=== PATIENT | female | born 1980 | race Caucasian/White ===

== ENCOUNTER 2016-07-15 08:10 | Inpatient (IN) | payer BC, OTHER ==
[~2016-07-15] VITALS: Ht 170.2 cm; Wt 71.7 kg
[2016-07-15 21:00] VITALS: BP 126/74
--- NOTE | 2016-07-15 21:00 | NUR ---
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 Patient was escorted on to unit to her room by intake Department, where body check was rendered. Skin check was rendered by primary nurse with skin noted intact, and at that time patient was able to provide Admission Urine Drug Screen. Patient is alert, oriented, ambulatory with no assistance needed. Breathing even and non labored with no signs of pain or discomfort noted. Vital signs rendered and noted as 126/74, 81, 18, 98.2, 5/10, 97.9. Patient is verbalizing pain due to head ache, neck, and lower back pain. Patient states "its from sitting in the plane and car from the traveling." Height noted at 5'7 and weight noted at 158lbs. Patient verbalized allergies to PCN, wishes to be full code, following a Regular diet at home. Patient is noted to be very calm, soft spoken, visibly nervous by shifting positions, but Cooperative. Patient denies any suicidal or homicidal thoughts. BUE and BLE noted WNL. Lung sounds clear with no cough. Bowel sounds active in all quadrants with LBM verbalized 07/14/16. Patient verbalizes past medical history of Hysterectomy 2011 due to excessive bleeding during menstruation, Mitral Valve Prolapse in 1995, Vitamin D Deficiency, Anxiety, Depression, and Bipolar. No history of seizures. Patients chief complaint verbalized as "I need help to get a grasp on the Alcohol and Bipolar" She explains his use as: 1. ETOH-White Wine- for the past 3 years, drinking 2-3 Bottles per day, with the last drink 07/15/16. Patient able to verbalize " 1 glass of Chardonnay, 1 bottle of Moscato 750mls at 1% alcohol, 1 glass of Zinfandel, and one the plane I had 3 vodka and orange juice" 2. Xanax- for the past 3 years ago, Prescribed 0.25mg Q4H PRN. Patient able to verbalize "I would normally take 2 tabs per day. I do not abuse them" Last dose 07/15/16-2 tabs of 0.25mg Patient able to verbalize of an incident that occurred 06/18/16 where patient was noted to have been intoxicated and had taken approx 13 tabs of her Xanax and was taken to the Emergency Room via Ambulance. She was treated with a Saline bag, monitored, and then sent home. Patient again denies suicidal attempts or ideations. She is able to report her signs and symptoms of withdrawal as "sweats, tremulous, chills, restless, anxious, and irritable." Patient currently lives at home with her , whom assisted her with treatment admission, and he 3 young boys. 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 This is the patients first time in treatment but is looking forward to [facility]. Home Medications Reconciled. Admission CIWA noted at 7. All Information relayed to MD with orders for labs to be rendered and PRN Medications available for increased signs and symptoms of Withdrawal. All needs attended to promptly. Will continue plan of care as ordered.
[2016-07-15] MEDS ORDERED: LORAZEPAM 1 MG TABLET PO PRN (21:15)
[2016-07-15] MEDS ORDERED: MAG HYDROX/AL HYDROX/SIMETH 30 ML LIQUID UDC PO PRN (21:15)
[2016-07-15] MEDS ORDERED: THIAMINE HCL 200 MG/2 ML VIAL IM ONE (21:15)
[2016-07-15] MEDS ORDERED: MAGNESIUM HYDROXIDE 30 ML LIQUID UDC PO PRN (21:15)
[2016-07-15] MEDS ORDERED: CLONIDINE HCL 0.1 MG TABLET PO PRN (21:15)
[2016-07-15] MEDS ORDERED: ONDANSETRON HCL 4 MG TABLET PO PRN (21:15)
[2016-07-15] MEDS ORDERED: LORAZEPAM 2 MG/1 ML VIAL IM PRN (21:15)
[2016-07-15] MEDS ORDERED: diphenhydrAMINE 50 MG CAPSULE PO PRN (21:15)
[2016-07-15 21:43] LABS: HEMATOCRIT 42.5 % (37.0-47.0); HEMOGLOBIN 14.4 g/dL (12.0-16.0); MEAN CORPUSCULAR HEMOGLOBIN 31.8 uug (27.0-31.0); MEAN CORPUSCULAR HGB CONC 34 g/dL (32.0-37.0); MEAN CORPUSCULAR VOLUME 93.7 fL (81.0-99.0); PLATELET COUNT (AUTO) 221 K/uL (150-450); RED BLOOD CELL COUNT(AUTO) 4.53 MIL/uL (4.20-5.40); RED CELL DISTRIBUTION WIDTH 13.3 % (11.5-14.5); WHITE BLOOD COUNT (AUTO) 4.3 K/uL (4.0-11.2)
[2016-07-15 21:54] LABS: ALBUMIN 3.7 g/dL (3.4-5.0); BILIRUBIN,TOTAL 0.3 mg/dL (0.2-1.0); CALCIUM 8.4 mg/dL (8.5-10.1); CREATININE 0.7 mg/dL (0.6-1.3); MAGNESIUM 1.9 mg/dL (1.8-2.4); POTASSIUM 3.8 mmol/L (3.5-5.1)
[2016-07-15 22:04] LABS: THYROID STIMULATING HORMONE 1.697 mIU/mL (0.358-3.740)
[2016-07-15 22:05] LABS: BAND % (MANUAL) 2 % (0-10); EOSINOPHILS % (MANUAL) 4 % (0-8); LYMPHOCYTES % (MANUAL) 45 % (20-40); MONOCYTES % (MANUAL) 7 % (2-10); NEUTROPHILS % (MANUAL) 42 % (42-75); PLATELET ESTIMATE ADEQUATE
[2016-07-15 22:06] LABS: HIV-1 p24 ANTIGEN NON REACTIVE (NONREACTIVE); HIV-1/2 ANTIBODY NON REACTIVE (NONREACTIVE)
[2016-07-15] MEDS: LORAZEPAM 1 MG TABLET PO PRN (22:18)
[2016-07-15] MEDS: IBUPROFEN 400 MG TABLET PO PRN (22:18)
--- NOTE | 2016-07-15 22:18 | NUR ---
PRN Medication Administration Patient noted with increased anxiety, nausea, and headache. CIWA noted to be 10. PRN Ativan 1mg, Motrin, and Zofran all given and patient able to tolerate well. Will continue to monitor.
[2016-07-15] MEDS ORDERED: IBUPROFEN 400 MG TABLET ONE (22:21)
[2016-07-15] MEDS ORDERED: LORAZEPAM 1 MG TABLET ONE (22:21)
[2016-07-15] MEDS ORDERED: ONDANSETRON HCL 4 MG TABLET ONE (22:22)
--- NOTE | 2016-07-15 23:30 | NUR ---
PRN Medication Reassessment Patient noted in room, returning form shower. Patient able to verbalize that nausea had subsided. Patient also verbalized that anxiety was reduced with the aid of the medication. Patient still verbalizing of slight head ache but states "the Motrin took the edge off to where its tolerable. Its probably from the traveling." Encouraged patient to drink plenty of fluids. Patient verbalized understanding. Will continue to monitor.
[2016-07-16 00:33] VITALS: BP 114/61
--- NOTE | 2016-07-16 00:42 | NUR ---
PRN Medication Administration Patient noted awake during vitals and verbalizing inability of falling asleep. PRN Benadryl given and patient able to tolerate well. Will continue to monitor for effectiveness of medication.
[2016-07-16] MEDS ORDERED: diphenhydrAMINE 25 MG CAP PO ONE (00:45)
[2016-07-16] MEDS ORDERED: diphenhydrAMINE 50 MG CAPSULE ONE (00:51)
[2016-07-16 00:54] LABS: *URINE HCG, QUAL NEGATIVE (NEGATIVE)
[2016-07-16] MEDS ORDERED: SUMA50TA PO (01:05)
[2016-07-16] MEDS ORDERED: DIVA500T2 PO (01:05)
[2016-07-16] MEDS ORDERED: FLUO20CA36 PO (01:05)
[2016-07-16] MEDS ORDERED: FLUO40CA8 PO (01:05)
[2016-07-16] MEDS ORDERED: ERGO500047 PO (01:05)
[2016-07-16 01:51] LABS: *AMPHETAMINE, URINE NEGATIVE (NEGATIVE); *BARBITURATE, URINE NEGATIVE (NEGATIVE); *CANNABINOID, URINE NEGATIVE (NEGATIVE); *COCCAINE, URINE NEGATIVE (NEGATIVE); *OPIATE, URINE NEGATIVE (NEGATIVE); *PHENCYCLIDINE SCREEN,URINE NEGATIVE (NEGATIVE)
[2016-07-16 04:32] VITALS: BP 107/67
--- NOTE | 2016-07-16 07:03 | NUR ---
End of Shift Patient is in bed sleeping. Breathing even and non labored. No signs of pain or discomfort noted. Patient is a 36 year old female, admitted on 07/15/16 for ETOH and Benzo Dependence, under the care of Dr. Claudio. Patient is set to start a 5 day Ativan taper today 07/16/16 0900. Patient verbalizes allergies to PCN, wishes to be full code, following a regular diet, skin intact, on fall and seizure precautions. Past Medical history of Anxiety, Depression, Bipolar, Hysterectomy in 2011, Mitral Valve Prolapse, Vitamin D Deficiency. PRN Ativan 1mg administered for a CIWA of 10. PRN Zofran, Motrin, and Benadryl also administered and noted to be effective. All needs attended to promptly. Will endorse to continue plan of care as ordered.
--- NOTE | 2016-07-16 07:30 | NUR ---
START OF SHIFT NOTE: Received report from assistant casino shift manager nurse. Patient is a 36 year old female, admitted on 07/15/16 for ETOH and Benzo Dependence. Pt placed on a 5 day Ativan taper to start this AM. Pt is alert and oriented X4. Color good, skin warm and dry. Respirations even and unlabored. Pt resting in bed at this time. Safety precautions observed. Call light within reach. Will continue to monitor.
[2016-07-16 08:00] VITALS: BP 122/60
[2016-07-16] MEDS ORDERED: TUBERCULIN,PURIF.PROT.DERIV. 5 TU/0.1 ML TEST ID ONE (09:00)
--- NOTE | 2016-07-16 09:00 | NUR ---
VSS CIWA 13 Pt c/o tremors, sweating and anxiety.
[2016-07-16] MEDS: LORAZEPAM 1 MG TABLET PO SCH ×4 (09:09→21:10)
[2016-07-16] MEDS: THIAMINE HCL 100 MG TABLET PO SCH (09:09)
[2016-07-16] MEDS: MULTIVITAMINS,THERAPEUTIC TABLET PO SCH (09:09)
[2016-07-16] MEDS: FOLIC ACID 1 MG TABLET PO SCH (09:10)
[2016-07-16] MEDS ORDERED: DIVALPROEX 500 MG TABLET.DR PO PRN (10:15)
[2016-07-16] MEDS ORDERED: FLUOXETINE HCL 20 MG CAPSULE PO PRN (10:15)
[2016-07-16] MEDS ORDERED: DIVALPROEX 500 MG TABLET.DR PO SCH (10:15)
[2016-07-16] MEDS: FLUOXETINE HCL 20 MG CAPSULE PO SCH (10:56)
[2016-07-16] MEDS ORDERED: TRAZODONE 50 MG TABLET PO PRN (11:15)
[2016-07-16 12:42] VITALS: BP 112/70
[2016-07-16] MEDS: ACETAMINOPHEN 325 MG TABLET PO PRN (12:54)
[2016-07-16] MEDS: BACLOFEN 20 MG TABLET PO PRN ×2 (12:54→21:09)
--- NOTE | 2016-07-16 13:00 | NUR ---
Tylenol 650 po prn, Baclofen 20mg po prn given for back pain.
--- NOTE | 2016-07-16 14:00 | NUR ---
Pt states feels improved after Baclofen and Tylenol prn's.
--- NOTE | 2016-07-16 15:30 | NUR ---
Pt c/o anxiety and agitation. CIWA 12 Ativan 1mg po prn given.
[2016-07-16] MEDS: LORAZEPAM 1 MG TABLET PO PRN (15:33)
--- NOTE | 2016-07-16 16:12 | NUR ---
Pt states feels improved after Ativan 1mg po prn. CIWA 8
--- NOTE | 2016-07-16 18:00 | NUR ---
Pt c/o back pain. Motrin 400mg po prn given
[2016-07-16] MEDS: IBUPROFEN 400 MG TABLET PO PRN (18:17)
[2016-07-16 18:42] VITALS: BP 112/70
--- NOTE | 2016-07-16 18:45 | NUR ---
END OF SHIFT NOTE: Report given to shift engineer nurse. Patient is a 36 year old female, admitted on 07/15/16 for ETOH and Benzo Dependence. Pt placed on a 5 day Ativan taper tolerating well. Pt is alert and oriented X4. Color good, skin warm and dry. Respirations even and unlabored. Vital signs have remained stable throughout shift. Pt received Tylenol 650mg po prn and Baclofen 20mg po prn @ 1300 for back pain. Ativan 1mg po prn given @ 1530 for anxiety and agitation. Motrin 400mg po prn @ 1800. Last CIWA 10 @ 1700. Pt resting in bed at this time. Safety precautions observed. Call light within reach.
--- NOTE | 2016-07-16 19:10 | NUR ---
Start of Shift Received Patient. Patient is in activities room participating in group activities. Patient is a 36 year old female, admitted on 07/15/16 for ETOH and Benzo Dependence, under the care of Dr. Claudio, and is currently receiving a 5 day Ativan taper. Patient verbalizes allergies to PCN, wishes to be full code, following a regular diet, skin intact, on fall and seizure precautions. Past Medical history of Anxiety, Depression, Bipolar, Hysterectomy in 2011, Mitral Valve Prolapse, Vitamin D Deficiency. Per endorsement, patient continues on her Home medications of Prozac and Depakote. Patient was given several PRN medications throughout the shift including PRN Ativan 1mg for a CIWA of CIWA of 12. All needs attended to promptly. Will continue plan of care as ordered.
[2016-07-16 21:05] VITALS: BP 159/78
[2016-07-16] MEDS: DIVALPROEX 500 MG TABLET.DR PO SCH (21:10)
[2016-07-16] MEDS: ONDANSETRON ODT 4 MG TAB.RAPDIS SL PRN (21:10)
--- NOTE | 2016-07-16 21:15 | NUR ---
PRN Medication Administration Patient verbalized increase back spasms to the lower back and also to the lower legs. Patient also verbalizing increase nausea with no episodes of emesis noted. PRN Baclofen and Zofran administered with routine medications. Patient able to tolerate well. Will continue to monitor for effectiveness.
--- NOTE | 2016-07-16 22:30 | NUR ---
PRN Medication Reassessment Patient noted returning to room with snacks. patient able to verbalize that medications were effective and symptoms had subsided. Patient states "I feel so much better." Will continue to monitor.
[2016-07-17 00:58] VITALS: BP 111/50
[2016-07-17 04:57] VITALS: BP 124/71
[2016-07-17] MEDS: HYDROXYZINE PAMOATE 25 MG CAPSULE PO PRN (05:27)
[2016-07-17] MEDS: IBUPROFEN 400 MG TABLET PO PRN (05:28)
--- NOTE | 2016-07-17 05:34 | NUR ---
PRN Medication Administration Patient noted awake, noted to emotional, verbalizing "I had a bad dream and when I woke up I felt like I was still in the dream." Patient verbalizing increased anxiety and increased neck pain of 5/10. PRN Vistaril and Motrin administered. Patient able to tolerate well. Patient verbalized of wanting to go outside to get fresh air. She was accompanied by BHT. Will continue to monitor.
--- NOTE | 2016-07-17 06:38 | NUR ---
PRN Medication Reassessment patient able to verbalize "I feel much better. Im going to try and sleep for a little while" PRN Vistaril and Motrin noted to be effective. Will continue to monitor.
--- NOTE | 2016-07-17 07:23 | NUR ---
End of Shift Patient is in bed sleeping. Breathing even and non labored. No signs of pain or discomfort noted. Patient is a 36 year old female, admitted on 07/15/16 for ETOH and Benzo Dependence, under the care of Dr. Claudio. Patient is set to start a 5 day Ativan taper today 07/16/16 0900. Patient verbalizes allergies to PCN, wishes to be full code, following a regular diet, skin intact, on fall and seizure precautions. Past Medical history of Anxiety, Depression, Bipolar, Hysterectomy in 2011, Mitral Valve Prolapse, Vitamin D Deficiency. PRN Vistaril, Motrin, Zofran, and Baclofen given and medications noted to be effective. All needs attended to promptly. Will endorse to continue plan of care as ordered.
--- NOTE | 2016-07-17 07:40 | NUR ---
START OF SHIFT Pt is a 36 yr old female, AA&Ox3. Pt was admitted on 07/15/16 for ETOH/Benzo dependence and is on 5 day Ativan taper as ordered. Medication ivanna well. Pt is full code, regular diet and allergies to PCN. Pt reports of PMH of anxiety, depression, bipolar d/o, hysterectomy, Mitral Valve prolapse and Vit D deficiency. Pt received Zofran, Baclofen PRN at 2110 and Vistaril and Motrin at 0530 during the overnight caregiver. Medication was effective. Last CIWA score was 4. Pt slept for 6 hrs. Pt is c/o increase anxiety/ facial redness with flat effective is observed. Skin is intact, warm and moist to touch. No tremors seen or felt. Pt denies any n/v. Encouraged increase fluid intake. Will f/u with eMAR. Safety precaution observed. Will continue to monitor.
[2016-07-17 08:00] VITALS: BP 121/73
[2016-07-17] MEDS: MULTIVITAMINS,THERAPEUTIC TABLET PO SCH (09:16)
[2016-07-17] MEDS: LORAZEPAM 1 MG TABLET PO SCH ×3 (09:16→21:25)
[2016-07-17] MEDS: FOLIC ACID 1 MG TABLET PO SCH (09:17)
[2016-07-17] MEDS: THIAMINE HCL 100 MG TABLET PO SCH (09:17)
[2016-07-17] MEDS: FLUOXETINE HCL 20 MG CAPSULE PO SCH (09:17)
[2016-07-17] MEDS: QUETIAPINE FUMARATE 25 MG TABLET PO SCH ×2 (10:26→21:25)
[2016-07-17 12:00] VITALS: BP 122/61
[2016-07-17 16:00] VITALS: BP 120/68
--- NOTE | 2016-07-17 18:55 | NUR ---
END OF SHIFT Pt is a 36 yr old female, AA&Ox3. Pt was admitted on 07/15/16 for ETOH/Benzo dependence and is on 5 day Ativan taper as ordered. Medication ivanna well. Pt is full code, regular diet and allergies to PCN. Pt reports of PMH of anxiety, depression, bipolar d/o, hysterectomy, Mitral Valve prolapsed and Vit D deficiency. Pt c/o increase anxiety and depression during the day. Pt was seen by Dr. Briggs with new order for Seroquel 50mg AMHS. No PRN's were given . Pt was observed with increase drowsiness after receiving Seroquel. Pt refused to attend group sessions and activities. Pt remains resting in bed with respirations even and unlabored. Skin is intact, warm and moist to touch. No tremors seen or felt. Pt denies any n/v. Encouraged increase fluid intake. Last CIWA score was 0. Safety precaution observed. Call light is within reach
--- NOTE | 2016-07-17 19:10 | NUR ---
Start of Shift Received Patient. Patient is in activities room participating in group activities. Patient is a 36 year old female, admitted on 07/15/16 for ETOH and Benzo Dependence, under the care of Dr. Claudio, and is currently receiving a 5 day Ativan taper. Patient verbalizes allergies to PCN, wishes to be full code, following a regular diet, skin intact, on fall and seizure precautions. Past Medical history of Anxiety, Depression, Bipolar, Hysterectomy in 2011, Mitral Valve Prolapse, Vitamin D Deficiency. Per endorsement, patient continues on her Home medications of Prozac and Depakote. Per endorsement, patient noted to be flat and withdrawal during shift. New order for Seroquel 50mg Q12H. All needs attended to promptly. Will continue plan of care as ordered.
[2016-07-17 20:25] VITALS: BP 140/96
[2016-07-17] MEDS: DIVALPROEX 500 MG TABLET.DR PO SCH (21:25)
--- NOTE | 2016-07-18 00:26 | NUR ---
Vitals and CIWA Patient Refused 0000 vitals prior to bed. Patient verbalized "I haven't been getting rest lately, so if Im sleeping please let me sleep." Patient is noted in bed sleeping. Breathing even and non labored. No signs of pain or discomfort noted. Patients respirations noted at 14. CIWA not able to be completed as per order. Will continue plan of care as ordered. Addendum: 07/18/16 at 0047 by THOM MCCARTY LVN Amended: Links added.
--- NOTE | 2016-07-18 04:37 | NUR ---
Vitals and CIWA Patient Refused 0400 vitals prior to bed. Patient verbalized "I haven't been getting rest lately, so if Im sleeping please let me sleep." Patient is noted in bed sleeping. Breathing even and non labored. No signs of pain or discomfort noted. Patients respirations noted at 14. CIWA not able to be completed as per order. Will continue plan of care as ordered. Addendum: 07/18/16 at 0437 by THOM MCCARTY LVN Amended: Links added.
--- NOTE | 2016-07-18 07:19 | NUR ---
End of Shift Patient is in bed sleeping. Breathing even and non labored. No signs of pain or discomfort noted. Patient is a 36 year old female, admitted on 07/15/16 for ETOH and Benzo Dependence, under the care of Dr. Claudio. Patient is set to start a 5 day Ativan taper today 07/16/16 0900. Patient verbalizes allergies to PCN, wishes to be full code, following a regular diet, skin intact, on fall and seizure precautions. Past Medical history of Anxiety, Depression, Bipolar, Hysterectomy in 2011, Mitral Valve Prolapse, Vitamin D Deficiency. No PRN Medications noted. All needs attended to promptly. Will endorse to continue plan of care as ordered.
--- NOTE | 2016-07-18 07:45 | NUR ---
START OF SHIFT Pt is a 36 yr old female, AA&Ox3. Pt was admitted on 07/15/16 for ETOH/Benzo dependence and is on 5 day Ativan taper as ordered. Medication ivanna well. Pt is full code, regular diet and allergies to PCN. Pt reports of PMH of anxiety, depression, bipolar d/o, hysterectomy, Mitral Valve prolapse and Vit D deficiency. No PRN's were given during the floorhand. Pt slept for 7 hrs. Last CIWA score was 9. Pt is currently in bed resting with respirations even and unlabored. Skin is intact, warm and moist to touch. No tremors seen or felt. Pt denies any n/v. Encouraged increase fluid intake. Safety precaution observed. Bed kept in low position and locked with side rails up x2. Call light is within reach. Will continue to monitor.
[2016-07-18 08:00] VITALS: BP 105/57
[2016-07-18] MEDS: MULTIVITAMINS,THERAPEUTIC TABLET PO SCH (08:38)
[2016-07-18] MEDS: LORAZEPAM 1 MG TABLET PO SCH ×4 (08:38→20:54)
[2016-07-18] MEDS: FLUOXETINE HCL 20 MG CAPSULE PO SCH (08:38)
[2016-07-18] MEDS: FOLIC ACID 1 MG TABLET PO SCH (08:38)
[2016-07-18] MEDS: THIAMINE HCL 100 MG TABLET PO SCH (08:38)
[2016-07-18] MEDS ORDERED: ERGOCALCIFEROL 50,000 UNIT CAPSULE PO SCH (09:00)
[2016-07-18] MEDS: QUETIAPINE FUMARATE 25 MG TABLET PO SCH ×3 (09:00→20:56)
--- NOTE | 2016-07-18 09:07 | NUR ---
MD COMMUNICATION Per pt, Seroquel 50mg in AM was "too strong of a dose" for her and was causing increase sedation. Reported to Dr. Briggs with new telephone order for Seroquel 25mg PO Daily and Seroquel 50mg PO QHS. New order was noted and carried out.
[2016-07-18] MEDS: IBUPROFEN 400 MG TABLET PO PRN (09:16)
[2016-07-18] MEDS: BACLOFEN 20 MG TABLET PO PRN ×3 (09:16→21:36)
--- NOTE | 2016-07-18 09:16 | NUR ---
PRN MEDICATIONS GIVEN Pt c/o back pain/spasms 10/31. facial grimacing is observed. Baclofen 20mg PRN and Motrin 400mg PRN was given as ordered. Medication ivanna well. Encouraged increase fluid intake. Will continue to monitor.
--- NOTE | 2016-07-18 10:16 | NUR ---
PRN RE-ASSESSMENT Baclofen PRN and Motrin was effective. pt continues to c/o mild pain 08/01. Encouraged increase fluid intake. Will continue to monitor.
[2016-07-18 12:00] VITALS: BP 124/88
--- NOTE | 2016-07-18 14:15 | NUR ---
MD COMMUNICATION/PRN GIVEN Pt was c/o lower back pain 12/01. facial grimacing is observed. Spoke with Dr. Claudio in regards to pain. Received new order for Toradol 30mg IM PRN. New order was initiated by MD. Pt received Toradol 30mg IM PRN and Baclofen 20mg PO PRN as ordered. Medication ivanna well. Encouraged increase fluid intake. Will continue to monitor.
[2016-07-18] MEDS: KETOROLAC TROMETHAMINE 30 MG INJ IM PRN ×2 (14:17→21:27)
--- NOTE | 2016-07-18 15:15 | NUR ---
PRN RE-ASSESSMENT Toradol PRN and Baclofen PRN was effective. Pt pain level subsided to 4/10. Will continue to monitor.
[2016-07-18 16:00] VITALS: BP 120/84
--- NOTE | 2016-07-18 19:17 | NUR ---
END OF SHIFT Pt is a 36 yr old female, AA&Ox3. Pt was admitted on 07/15/16 for ETOH/Benzo dependence and is on 5 day Ativan taper as ordered. Medication ivanna well. Pt is full code, regular diet and allergies to PCN. Pt reports of PMH of anxiety, depression, bipolar d/o, hysterectomy, Mitral Valve prolapsed and Vit D deficiency. Pt has been cooperative with medication regime and plan of care. Pt attended groups sessions. Pt received Baclofen PRN and Motrin at 0916 and Toradol PRN and Baclofen at 1415 for muscle pain. Medication was effective. Pt has been observed with anxiety during the day. Educated pt on coping mechanisms. Pt was able to verbalize understanding. Skin is intact, warm and dry to touch. No tremors seen or felt. Pt denies any n/v. Encouraged increase fluid intake. Last CIWA score was 4 at 1600. Safety precaution observed. Call light is within reach
--- NOTE | 2016-07-18 19:30 | NUR ---
START OF SHIFT--- Pt is a 36 yr old female, A/Ox3. Pt was admitted on 07/15/16 for ETOH/Benzo dependence and is on 5 day Ativan taper as ordered, tolerating well. Pt is full code, regular diet and allergies to PCN. Pt reports of PMH of anxiety, depression, bipolar d/o, hysterectomy, Mitral Valve prolapsed and Vit D deficiency. Pt has been cooperative with medication regime and plan of care. Skin is intact, warm and dry to touch. Pt denies any N/V. Encouraged to increase fluid intake. Last CIWA score was 4 at 1600. Safety precaution observed.Bed is locked in lowest position,side rails up and padded x 2, Call light is within reach,will continue to monitor.
[2016-07-18 20:00] VITALS: BP 134/70
[2016-07-18] MEDS: DIVALPROEX 500 MG TABLET.DR PO SCH (20:55)
[2016-07-18] MEDS: CLONIDINE HCL 0.1 MG TABLET PO SCH (20:55)
[2016-07-18] MEDS ORDERED: MIRALAX 17 GM POWD.PACK PO PRN (21:15)
[2016-07-18] MEDS ORDERED: BISACODYL 5 MG TABLET.DR PO ONE (21:15)
[2016-07-18] MEDS: ONDANSETRON ODT 4 MG TAB.RAPDIS SL PRN (21:36)
--- NOTE | 2016-07-18 21:40 | NUR ---
PRN MEDS-- PT C/O BACK PAIN,NAUSEA AND MUSCLE CRAMPS.MEDICATED WITH TRAMADOL IM,ZOFRAN SL AND BACLOFEN PO ORDERED.WILL MONITOR FOR EFFECTIVENESS.
--- NOTE | 2016-07-18 22:40 | NUR ---
PRN F/U-- PRN MEDS ARE EFFECTIVE.PT SEEN RESTING IN BED WITH EYES CLOSED,NO S/S OF DISTRESS NOTED.
[2016-07-19] VITALS: BP 128/78
[2016-07-19] MEDS: IBUPROFEN 400 MG TABLET PO PRN (03:10)
--- NOTE | 2016-07-19 03:11 | NUR ---
PRN MED--- PRN MOTRIN GIVEN ORDERED FOR C/O HEADACHE.WILL MONITOR FOR EFFECTIVENESS.
--- NOTE | 2016-07-19 04:00 | NUR ---
PT VERBALIZED FEEING BETTER .REFUSED V/S AND CIWA. IWA.
[2016-07-19 04:06] LABS: HEPATITIS B CORE AB, IgM Negative (Negative); HEPATITIS B SURFACE AG Negative (Negative)
--- NOTE | 2016-07-19 06:47 | NUR ---
END OF SHIFT--- Pt is a 36 yr old female, A/Ox3. Pt was admitted on 07/15/16 for ETOH/Benzo dependence and is on 5 day Ativan taper as ordered, tolerating well. Pt is full code, regular diet and allergies to PCN. Pt reports of PMH of anxiety, depression, bipolar d/o, hysterectomy, Mitral Valve prolapsed and Vit D deficiency. Pt has been cooperative with medication regime and plan of care. Skin is intact, warm and dry to touch. Encouraged to increase fluid intake. Last CIWA score was 2 at midnight.PRN Toradol IM given x 1 for back pain.PRN Baclofen,Zofran and motrin given last night.Pt slept 8 hrs;fliud intake was 796 mls, urine x 2 . Safety precaution observed.Bed is locked in lowest position,side rails up and padded x 2, Call light is within reach,will continue to monitor. Addendum: 07/19/16 at 0704 by DOMENICO SABA RN PT WAS GIVEN DULCOLAX FOR C/O CONSTIPATION LAST NIGHT.RESULT STILL PENDING.ENDORSED TO DAY SHIFT TO FOLLOW UP.
[2016-07-19 08:00] VITALS: BP 112/67
--- NOTE | 2016-07-19 08:00 | NUR ---
START OF SHift Pt 36 y/o female admitted for etoh and benzo dependence. Pt received in room with eyes closed resting, but easily arousable to name. Pt alert and oriented to name, place, and time. Perrla. Skin warm and dry to touch. Respirations even and unlabored. It was reported that pt slept for 8 hours last night. Bed on lowest position with side rails x2 up for safety. Call light within reach. No distress noted at this time.
[2016-07-19] MEDS: LORAZEPAM 1 MG TABLET PO SCH ×3 (08:48→21:14)
[2016-07-19] MEDS: THIAMINE HCL 100 MG TABLET PO SCH (08:48)
[2016-07-19] MEDS: FOLIC ACID 1 MG TABLET PO SCH (08:48)
[2016-07-19] MEDS: BACLOFEN 20 MG TABLET PO PRN ×2 (08:48→21:17)
[2016-07-19] MEDS: FLUOXETINE HCL 20 MG CAPSULE PO SCH (08:48)
[2016-07-19] MEDS: MULTIVITAMINS,THERAPEUTIC TABLET PO SCH (08:48)
[2016-07-19] MEDS: QUETIAPINE FUMARATE 25 MG TABLET PO SCH ×2 (08:48→21:16)
[2016-07-19] MEDS: KETOROLAC TROMETHAMINE 30 MG INJ IM PRN ×3 (08:50→21:17)
--- NOTE | 2016-07-19 08:50 | NUR ---
PRN Pt with c/o back pain 10/31. Toradol im prn per MD order given and tolerated well.
[2016-07-19] MEDS ORDERED: GABAPENTIN 300 MG CAPSULE PO SCH (09:00)
[2016-07-19] MEDS: CLONIDINE HCL 0.1 MG TABLET PO SCH ×2 (09:00→21:15)
--- NOTE | 2016-07-19 09:50 | NUR ---
MIKE ROSENBERG Pt observed in dining room sitting on chair. No distress noted at this time.
[2016-07-19 12:00] VITALS: BP 112/67
[2016-07-19] MEDS: ACETAMINOPHEN 325 MG TABLET PO PRN (13:54)
--- NOTE | 2016-07-19 15:20 | NUR ---
PRN Pt with c/o back pain 10/01. Toradol im prn per MD order given and tolerated well.
[2016-07-19 16:00] VITALS: BP 100/54
--- NOTE | 2016-07-19 16:20 | NUR ---
MIKE ROSENBERG Pt observed walking around the hallways. No distress noted at this time.
--- NOTE | 2016-07-19 19:20 | NUR ---
END OF SHIFT Pt 36 y/o female admitted for etoh and benzo dependence. Pt alert and oriented to name, place, and time. Perrla. Skin warm and dry to touch.Respirations even and unlabored. Pt observed mostly in activity today. Pt medication compliant and tolerated well. No ASE noted. Bed on lowest position with side rails x2 up for safety. Call light within reach. No distress noted at this time.
--- NOTE | 2016-07-19 19:30 | NUR ---
START OF SHIFT-- Pt is a 36 yr old female, A/Ox3. Pt was admitted on 07/15/16 for ETOH/Benzo dependence and is on 5 day Ativan taper as ordered, tolerating well. Pt is full code, regular diet and allergies to PCN. Pt reports of PMH of anxiety, depression, bipolar d/o, hysterectomy, Mitral Valve prolapsed and Vit D deficiency. Pt has been cooperative with medication regime and plan of care. Skin is intact, warm and dry to touch. Encouraged to increase fluid intake. Last CIWA score was 2, Safety precaution observed at all times.Bed is locked in lowest position,side rails up and padded x 2, Call light is within reach,will continue to monitor.
[2016-07-19 20:00] VITALS: BP 133/74
[2016-07-19] MEDS: GABAPENTIN 300 MG CAPSULE PO SCH (21:15)
[2016-07-19] MEDS: DIVALPROEX 500 MG TABLET.DR PO SCH (21:15)
--- NOTE | 2016-07-19 21:17 | NUR ---
PRN MEDS--- PRN TORADOL IM AND BACLOFEN PO MEDS GIVEN ORDERED FOR C/O BACK PAIN AND MUSCLE SPASMS RESPECTIVELY ORDERED.PO PAIN MED WAS OFFERED BUT PT PREFERS TO TAKE IM MEDS,SAID "THE PILLS DON'T HELP".WILL MONITOR FOR EFFECTIVENESS.
--- NOTE | 2016-07-19 22:20 | NUR ---
PRN F/U PT STATES FEELING BETTER.PRN MEDS ARE EFFECTIVE.
--- NOTE | 2016-07-20 | NUR ---
V/S AND CIWA DEFERRED-- PT REQUESTED NOT TO BE WOKEN UP FOR V/S IF SHE IS SLEEPING.OBSERVED TO BE FAST ASLEEP,NO S/S OF DISTRESS NOTED.WILL BE MONITORED.
--- NOTE | 2016-07-20 04:00 | NUR ---
V/S AND CIWA DEFERRED-- PT REFUSED V/S IF SHE IS SLEEPING.OBSERVED TO BE FAST ASLEEP,NO S/S OF DISTRESS NOTED.WILL BE MONITORED.
--- NOTE | 2016-07-20 06:43 | NUR ---
END OF SHIFT-- Pt is a 36 yr old female, A/Ox3. Pt was admitted on 07/15/16 for ETOH/Benzo dependence and is on 5 day Ativan taper as ordered, tolerating well. Pt is full code, regular diet and allergies to PCN. Pt reports of PMH of anxiety, depression, bipolar d/o, hysterectomy, Mitral Valve prolapsed and Vit D deficiency. Pt has been cooperative with medication regime and plan of care. Skin is intact, warm and dry to touch. Encouraged to increase fluid intake. Last CIWA score was 2. PRN Toradol and Baclofen given last night.Pt slept 7 hrs,fluiid intake was 1336 mls,urine x 1 . Safety precaution observed at all times.Bed is locked in lowest position,side rails up and padded x 2, Call light is within reach,will continue to monitor
[2016-07-20 08:00] VITALS: BP 104/62
--- NOTE | 2016-07-20 08:00 | NUR ---
START OF SHIFT Pt 36 y/o female admitted for etoh and benzo dependence. Pt received in room with eyes closed resting, but easily arousable to name. Pt alert and oriented to name, place, and time. Perrla. Skin warm and dry to touch. Respirations even and unlabored. It was reported that pt slept for 7 hours last night. Bed on lowest position with side rails x2 up for safety. Call light within reach. No distress noted at this time.
[2016-07-20] MEDS: GABAPENTIN 300 MG CAPSULE PO SCH ×3 (09:08→20:49)
[2016-07-20] MEDS: THIAMINE HCL 100 MG TABLET PO SCH (09:08)
[2016-07-20] MEDS: LORAZEPAM 1 MG TABLET PO SCH ×2 (09:08→20:49)
[2016-07-20] MEDS: FOLIC ACID 1 MG TABLET PO SCH (09:08)
[2016-07-20] MEDS: QUETIAPINE FUMARATE 25 MG TABLET PO SCH ×2 (09:08→20:49)
[2016-07-20] MEDS: FLUOXETINE HCL 20 MG CAPSULE PO SCH (09:08)
[2016-07-20] MEDS: MULTIVITAMINS,THERAPEUTIC TABLET PO SCH (09:08)
[2016-07-20] MEDS: CLONIDINE HCL 0.1 MG TABLET PO SCH ×2 (09:09→20:48)
[2016-07-20] MEDS: KETOROLAC TROMETHAMINE 30 MG INJ IM PRN ×2 (09:09→14:58)
--- NOTE | 2016-07-20 09:09 | NUR ---
PRN Pt with c/o pain aching of lower back 10/31. Toradol im prn per MD order given and tolerated well.
--- NOTE | 2016-07-20 10:09 | NUR ---
MIKE ROSENBERG Pt observed in dining room sitting on couch watching television.
[2016-07-20 12:00] VITALS: BP 106/68
[2016-07-20] MEDS: BACLOFEN 20 MG TABLET PO PRN (15:07)
[2016-07-20 16:00] VITALS: BP 100/57
[2016-07-20] MEDS: ACETAMINOPHEN 325 MG TABLET PO PRN (17:46)
--- NOTE | 2016-07-20 18:41 | NUR ---
END OF SHIFT Pt 36 y/o female admitted for etoh and benzo dependence. Pt alert and oriented to name, place, and time. Perrla. Skin warm and dry to touch.Respirations even and unlabored. Pt observed mostly in activity and room today. Pt medication compliant and tolerated well. No ASE noted. Bed on lowest position with side rails x2 up for safety. Call light within reach. No distress noted at this time.
--- NOTE | 2016-07-20 19:15 | NUR ---
Start of shift note Received report from day shift nurse. Pt is a 36 yo female, A+Ox4, presenting to [facility] for ETOH/Benzo dependence. Pt has Allergies to PCN, is Full Code status, and on Regular diet. Pt is on fall and Seizure precautions. Pt has HX of Anxiety, Depression, Bipolar, Hysterectomy, Mitral Valve prolapse, Vitamin D Deficiency, Pt is on 5 day Ativan taper, tolerated well. No s/s of distress noted at this time. Respirations even and unlabored. Will continue to monitor.
[2016-07-20] MEDS: DIVALPROEX 250 MG TABLET.DR PO SCH (20:48)
[2016-07-20 20:53] VITALS: BP 126/74
[2016-07-20] MEDS ORDERED: DIVALPROEX 500 MG TABLET.DR PO SCH (21:00)
--- NOTE | 2016-07-20 21:41 | NUR ---
PRN MOM Pt c/o constipation and requested for PRN Milk of Magnesia. Medication given and tolerated well. Will reassess within 1 HR. Will continue to monitor.
--- NOTE | 2016-07-20 22:30 | NUR ---
PRN MOM Reassessment Medication effective. No s/s of ASE/distress noted at this time. Respirations even and unlabored. Will continue to monitor.
--- NOTE | 2016-07-21 00:10 | NUR ---
V/S and CIWA Refused V/S and CIWA Refused. No s/s of distress noted at this time. Respirations even and unlabored. Will continue to monitor.
--- NOTE | 2016-07-21 04:13 | NUR ---
V/S and CIWA Refused V/S and CIWA Refused. No s/s of distress noted at this time. Respirations even and unlabored. Will continue to monitor.
--- NOTE | 2016-07-21 06:45 | NUR ---
End of shift note Pt is a 36 yo female, A+Ox4, presenting to [facility] for ETOH/Benzo dependence. Pt has Allergies to PCN, is Full Code status, and on Regular diet. Pt is on Fall and Seizure precautions. Pt has HX of Anxiety, Depression, Bipolar, Hysterectomy, Mitral Valve prolapse, and Vitamin D Deficiency. Pt is on 5 day Ativan taper, tolerated well. Pt was given PRN MOM @2141. Pt slept for a total of 7 HRS. Last CIWA: 3 @1999. No s/s of distress noted at this time. Respirations even and unlabored. Will endorse to day shift nurse.
--- NOTE | 2016-07-21 07:00 | NUR ---
Start of Shift Notes: Received patient in her room. Alert and oriented x 4. Verbally responsive. Able to make needs known. Respirations even and unlabored. No SOB noted. Skin warm and dry to touch. Abdomen soft and non-distended with (+) BS in all 4 quadrants. No complains of abdominal discomfort noted. No complains of N/V/D or constipation noted. Bladder non-distended. No complains of dysuria noted. Voids independently. Ambulatory ad aminata with steady gait. Patient is a 36 year old female admitted for ETOH and BZO dependence who was placed on a 5-day Ativan taper as ordered. No adverse reactions noted. Has past medical hx of anxiety, depression, bipolar disorder, hysterectomy, mitral valve relapse and Vit. D deficiency. Allergic to PCN. FULL CODE. Regular diet. On fall and seizure precautions. Educated patient on her current plan of care for the day and his medication regimen. Encouraged oral fluid intake and encouraged group participation to learn new skills to prevent relapse. Will continue to monitor closely.
[2016-07-21 08:00] VITALS: BP 112/52
[2016-07-21] MEDS: GABAPENTIN 300 MG CAPSULE PO SCH ×3 (08:32→20:54)
[2016-07-21] MEDS: MULTIVITAMINS,THERAPEUTIC TABLET PO SCH (08:32)
[2016-07-21] MEDS: QUETIAPINE FUMARATE 25 MG TABLET PO SCH ×2 (08:32→20:53)
[2016-07-21] MEDS: THIAMINE HCL 100 MG TABLET PO SCH (08:32)
[2016-07-21] MEDS: FOLIC ACID 1 MG TABLET PO SCH (08:32)
[2016-07-21] MEDS: CLONIDINE HCL 0.1 MG TABLET PO SCH ×2 (08:32→20:55)
[2016-07-21] MEDS: FLUOXETINE HCL 20 MG CAPSULE PO SCH (08:32)
--- NOTE | 2016-07-21 08:32 | NUR ---
Toradol 30 mg IM given: Patient complained of 7/10 back pain. Heat packs provided with no help. Medicated patient with Toradol 30 mg IM as ordered. Will monitor for effectiveness.
[2016-07-21] MEDS: KETOROLAC TROMETHAMINE 30 MG INJ IM PRN ×2 (08:33→16:51)
--- NOTE | 2016-07-21 09:02 | NUR ---
Re-assessment: Per patient, PRN Toradol was effective in reducing back pain. PL 06/03. Will continue to monitor.
[2016-07-21 10:13] LABS: *BENZODIAZEPINES Negative (Cutoff=300)
[2016-07-21 12:00] VITALS: BP 100/56
[2016-07-21] MEDS: BACLOFEN 20 MG TABLET PO PRN (12:36)
--- NOTE | 2016-07-21 12:36 | NUR ---
Baclofen 20 mg PO given: Patient noted with complain of 7/10 muscle aches to lower back. Non-pharmacological interventions were provided but ineffective. Medicated patient with Baclofen 20 mg PO as ordered. Will monitor for effectiveness.
--- NOTE | 2016-07-21 13:36 | NUR ---
Baclofen 20 mg PO given: Patient noted with complains of 5/10 muscle spasms to her lower back. Medicated patient with Baclofen 20 mg Po as ordered. Will monitor for effectiveness. Addendum: 07/21/16 at 1634 by JUSTUS BELL LVN Error in charting. Baclofen was given at 1236
--- NOTE | 2016-07-21 13:36 | NUR ---
Re-assessment: Per patient, PRN Baclofen has been effective in reducing back spasms. Will continue to monitor closely.
[2016-07-21] MEDS: HYDROXYZINE PAMOATE 25 MG CAPSULE PO PRN (14:24)
--- NOTE | 2016-07-21 14:25 | NUR ---
Vistaril 50 mg PO given: Patient noted with complain of anxiety. VS stable. Medicated patient with Vistaril 50 mg PO as ordered. Will monitor for effectiveness.
[2016-07-21] MEDS ORDERED: Gabapentin PO ×2 (14:27)
[2016-07-21] MEDS ORDERED: HYDR-3895 PO (14:27)
[2016-07-21] MEDS ORDERED: CLON0.1T14 PO (14:27)
[2016-07-21] MEDS ORDERED: QUET25TA PO ×2 (14:27)
[2016-07-21] MEDS ORDERED: Baclofen PO (14:27)
[2016-07-21] MEDS ORDERED: TRAZ-144 PO (14:27)
[2016-07-21] MEDS ORDERED: Fluoxetine Hcl PO (14:27)
[2016-07-21] MEDS ORDERED: DIPH50CA37 PO (14:27)
[2016-07-21] MEDS ORDERED: DIVA250T4 PO (14:27)
--- NOTE | 2016-07-21 14:36 | NUR ---
Re-assessment: Per patient, PRN Baclofen has been effective in reducing back spasms. Will continue to monitor closely. Addendum: 07/21/16 at 1635 by JUSTUS BELL LVN Error in charting
--- NOTE | 2016-07-21 15:24 | NUR ---
Re-assessment of Vistaril: Per patient, PRN Vistaril has been mildly effective in reducing patient's anxiety.
[2016-07-21 15:49] LABS: *AMPHETAMINE, URINE NEGATIVE (NEGATIVE); *BARBITURATE, URINE NEGATIVE (NEGATIVE); *CANNABINOID, URINE NEGATIVE (NEGATIVE); *COCCAINE, URINE NEGATIVE (NEGATIVE); *OPIATE, URINE NEGATIVE (NEGATIVE); *PHENCYCLIDINE SCREEN,URINE NEGATIVE (NEGATIVE)
[2016-07-21 16:00] VITALS: BP 104/65
--- NOTE | 2016-07-21 16:52 | NUR ---
Toradol 30 mg Im given: Patient complained 7/10 back pain. Heat packs provided with no help. Medicated patient with Toradol 30 mg Im as ordered. Will monitor for effectiveness.
--- NOTE | 2016-07-21 17:22 | NUR ---
Re-assessment: Per patient, PRN Toradol was effective in reducing patient's back pain. PL 07/01.
--- NOTE | 2016-07-21 18:28 | NUR ---
Miralax 17 gm PO given: Patient noted with complain of constipation. Requested for Miralax. Medicated patient with Miralax 17 gm PO as ordered. Will monitor for effectiveness.
--- NOTE | 2016-07-21 18:50 | NUR ---
End of Shift Notes: Patient is a 36 year old female admitted on 07/15/2016 for ETOh and BZO dependence who was placed on a 5-day Ativan taper as ordered. No adverse reactions noted. Has past medical hx of anxiety, depression, bipolar disorder, hysterectomy x 2, mitral valve relapse and vitamin D deficiency. Prior to admission, patient was using 2-3 bottles of white wine daily and 0.25mg of BZO as needed. VS monitored closely q 4 hours. No significant abnormalities noted. Initial CIWA 4, last CIWA 1 - patient presented with anxiety, agitation and nervousness. Medicated patient with Toradol at 0832, baclofen at 1236 for muscle aches, pain and spasms. Vistaril at 1424 due to anxiety with help after 1 hour. Another Toradol 30 mg IM given at 1652 for back pain with help after 1 hour. Miralax 17 gm PO was given at 1828 due to constipation. Per patient, Ativan has been helping her with her withdrawal symptoms. Patient completed taper and will be discharging tomorrow. UDS pending. Patient participated in group and therapy sessions.
--- NOTE | 2016-07-21 19:12 | NUR ---
Start of shift note Received report from day shift nurse. Pt is a 36 yo female, A+Ox4, presenting to [facility] for ETOH/Benzo dependence. Pt has Allergies to PCN, is Full Code status, and on Regular diet. Pt is on fall and Seizure precautions. Pt has HX of Anxiety, Depression, Bipolar, Hysterectomy, Mitral Valve prolapse, Vitamin D Deficiency. Pt has completed 5 day Ativan taper and is due for discharge tomorrow. No s/s of distress noted at this time. Respirations even and unlabored. Will continue to monitor.
[2016-07-21 20:32] VITALS: BP 105/63
[2016-07-21] MEDS: DIVALPROEX 250 MG TABLET.DR PO SCH (20:54)
--- NOTE | 2016-07-22 00:12 | NUR ---
V/S and CIWA Refused V/S and CIWA Refused. No s/s of distress noted at this time. Respirations even and unlabored. Will continue to monitor.
--- NOTE | 2016-07-22 04:06 | NUR ---
V/S and CIWA Refused V/S and CIWA Refused. No s/s of distress noted at this time. Respirations even and unlabored. Will continue to monitor.
[2016-07-22] MEDS: BACLOFEN 20 MG TABLET PO PRN ×2 (04:10→08:40)
--- NOTE | 2016-07-22 04:12 | NUR ---
PRN Baclofen Pt c/o muscle spasms and requested for PRN Baclofen. Medication given and tolerated well. Will reassess within 1 HR. Will continue to monitor.
--- NOTE | 2016-07-22 05:10 | NUR ---
PRN Baclofen Reassessment Medication effective. No s/s of ASE/distress noted at this time. Respirations even and unlabored. Will continue to monitor.
[2016-07-22] MEDS: HYDROXYZINE PAMOATE 25 MG CAPSULE PO PRN (05:11)
--- NOTE | 2016-07-22 05:19 | NUR ---
PRN Baclofen Pt c/o anxiety and requested for PRN Baclofen. Medication given and tolerated well. Will reassess within 1 HR. Will continue to monitor. Addendum: 07/22/16 at 0522 by JEFFREY PATTERSON LVN ERROR, incorrect entry
--- NOTE | 2016-07-22 05:20 | NUR ---
PRN Vistaril Pt c/o anxiety and requested for PRN Vistaril. Medication given and tolerated well. Will reassess within 1 HR. Will continue to monitor.
--- NOTE | 2016-07-22 06:15 | NUR ---
PRN Vistaril Reassessment Medication effective. No s/s of ASE/distress noted at this time. Respirations even and unlabored. Will continue to monitor.
--- NOTE | 2016-07-22 06:50 | NUR ---
End of shift note Pt is a 36 yo female, A+Ox4, presenting to [facility] for ETOH/Benzo dependence. Pt has Allergies to PCN, is Full Code status, and on Regular diet. Pt is on Fall and Seizure precautions. Pt has HX of Anxiety, Depression, Bipolar, Hysterectomy, Mitral Valve prolapse, and Vitamin D Deficiency. Pt has completed 5 day Ativan taper and is due for discharge today. Pt was given PRN Baclofen @0412 and PRN Vistaril @0520. Pt slept for a total of 6 HRS. Last CIWA: 2 @1999. No s/s of distress noted at this time. Respirations even and unlabored. Will endorse to day shift nurse.
--- NOTE | 2016-07-22 07:20 | NUR ---
Start of shift note Pt SBAR report rcv'd. Pt was admitted for ETOH dependence. Pt is a full code on a regular diet, allergic to PCN. Pt has a PMH of anxiety, depression, bipolar d/o, hysterectomy, mitral valve prolapse and vit D deficiency. Pt has completed an ativan taper without any ASE. Pt is scheduled to discharge today. Pt states that she feels ready for discharge. Will continue to monitor pt at this time. All needs addressed.
[2016-07-22 08:00] VITALS: BP 103/57
[2016-07-22 08:40] VITALS: BP 121/84
[2016-07-22] MEDS: IBUPROFEN 400 MG TABLET PO PRN (08:40)
[2016-07-22] MEDS: FOLIC ACID 1 MG TABLET PO SCH (08:40)
[2016-07-22] MEDS: CLONIDINE HCL 0.1 MG TABLET PO SCH (08:40)
[2016-07-22] MEDS: FLUOXETINE HCL 20 MG CAPSULE PO SCH (08:40)
[2016-07-22] MEDS: MULTIVITAMINS,THERAPEUTIC TABLET PO SCH (08:40)
[2016-07-22] MEDS: GABAPENTIN 300 MG CAPSULE PO SCH (08:40)
[2016-07-22] MEDS: THIAMINE HCL 100 MG TABLET PO SCH (08:40)
[2016-07-22] MEDS: QUETIAPINE FUMARATE 25 MG TABLET PO SCH (08:41)
--- NOTE | 2016-07-22 09:41 | NUR ---
Discharge note Pt was admitted for ETOH dependence. pt tolerated ativan taper well. Pt c/o generalized pain, administered PRN motrin and baclofen PRN. Pt stated it was effective in alleviating her pain. Pt states that she feels ready for discharge. Pt VS are WNL. Pt has a CIWA of 2. Pt LBM was 07/21/16. Pt verbalized her understanding of the discharge instructions. Pt prescriptions, discharge packet, medications and valuables returned to pt. Pt ID band removed. Pt ambulated off of unit with [facility], left facility via [facility] for [place].
== END 2016-07-22 09:42 | disposition home or self-care (01) | DRG 895 ==
LOC: SRC 19:11
PROVIDERS: ADMIT Internal Medicine; ATTEND Internal Medicine
PROC: HZ2ZZZZ Detoxification Services for Substance Abuse Treatment (ICD-10-PCS; principal; 2016-07-15)
PROC: HZ41ZZZ Group Counseling for Substance Abuse Treatment, Behavioral (ICD-10-PCS; 2016-07-16)
PROC: HZ31ZZZ Individual Counseling for Substance Abuse Treatment, Behavioral (ICD-10-PCS; 2016-07-17)
DX: F10.230 Alcohol dependence with withdrawal, uncomplicated (principal); F31.30 Bipolar disorder, current episode depressed, mild or moderate severity, unspecified; F13.10 Sedative, hypnotic or anxiolytic abuse, uncomplicated; Y90.2 Blood alcohol level of 40-59 mg/100 ml; K70.10 Alcoholic hepatitis without ascites; F17.210 Nicotine dependence, cigarettes, uncomplicated; F41.9 Anxiety disorder, unspecified; E55.9 Vitamin D deficiency, unspecified; Z88.0 Allergy status to penicillin; G47.00 Insomnia, unspecified; G89.29 Other chronic pain; Z98.84 Bariatric surgery status; Z90.710 Acquired absence of both cervix and uterus; Z81.8 Family history of other mental and behavioral disorders; Z81.3 Family history of other psychoactive substance abuse and dependence; Z82.49 Family history of ischemic heart disease and other diseases of the circulatory system; Z79.899 Other long term (current) drug therapy; M62.830 Muscle spasm of back
CPT/HCPCS: 36415; 70030-TC; 80307; 80346; 83690; 83735; 84443; 84703; 85025; 86580; 86705; 87340; 87806; A4663; G0176; G6040-TC; J1885; J3411; J3490; Q0162; Q0163